=== PATIENT | female | born 1950 | race Hispanic/Latino ===

== ENCOUNTER → 2024-12-03 | Outpatient (REF) | payer MEDICARE | LOC: RAD 15:56 | PROVIDERS: ATTEND Family Medicine | DX: M19.012 Primary osteoarthritis, left shoulder (principal); M16.12 Unilateral primary osteoarthritis, left hip; M17.12 Unilateral primary osteoarthritis, left knee ==

== ENCOUNTER → 2024-12-24 | Outpatient (REF) | payer MEDICARE | LOC: RAD 15:22 | PROVIDERS: ATTEND Family Medicine | DX: Z01.810 Encounter for preprocedural cardiovascular examination (principal) | CPT/HCPCS: 71046; 93005 ==

== ENCOUNTER → 2025-01-08 | Day surgery (SDC) | payer MEDICARE ==
[2025-01-07 11:03] LABS: BASOPHILS # (AUTO) 0.1 (0.0-0.1); EOSINOPHILS % 0.2 % (0.0-6.0); HEMATOCRIT 32.1 % (34.2-44.1); HEMOGLOBIN 10.4 g/dL (12.0-16.0); LYMPHOCYTES # (AUTO) 2.1 (1.0-3.2); LYMPHOCYTES % 33.9 % (18.0-39.1); MEAN CORPUSCULAR HEMOGLOBIN 26.8 pg (28-32); MEAN CORPUSCULAR HGB CONC 32.4 g/dL (31-35); MEAN CORPUSCULAR VOLUME 82.7 fL (81-99); MONOCYTES # (AUTO) 1.1 (0.2-0.8); MONOCYTES % 18.1 % (4.4-11.3); NEUTROPHILS # (AUTO) 2.8 (2.1-6.9); NEUTROPHILS % 45.8 % (38.7-80.0); PLATELET COUNT 323 x10e3/uL (140-360); RED BLOOD COUNT 3.88 x10e6/uL (3.6-5.1); RED CELL DISTRIBUTION WIDTH 13.6 % (11.7-14.4); WHITE BLOOD COUNT 6.19 x10e3/uL (4.8-10.8)
[2025-01-07 11:29] LABS: ANION GAP 16.6 mmol/L (8-16); CALCIUM 10.1 mg/dL (8.4-10.2); CREATININE, SERUM 0.68 mg/dL (0.57-1.11); POTASSIUM 4.6 mmol/L (3.5-5.1)
[~2025-01-08] MED LIST: ACETAMINOPHEN 1000 MG/100 ML 100 ML IV ONE; ACETAMINOPHEN 1000 MG/100 ML IV PRN; ASPIRIN 325 MG TAB PO SCH; CELECOXIB 100 MG CAP PO SCH; CELECOXIB 200 MG CAP ONE; DEXAMETHASONE SOD PHOS 10 MG/1 ML VIAL ONE; DEXMEDETOMIDINE HCL 200 MCG/2 ML VIAL ONE; DIPHENHYDRAMINE HCL INJ 50 MG/ML VIAL IV PRN; DOCUSATE SODIUM 100 MG CAP PO PRN; FAMOTIDINE 20 MG/2 ML VIAL IV ONE; FENTANYL CITRATE/PF 100MCG/2 ML INJ ONE; GABAPENTIN 300 MG CAP ONE; GABAPENTIN100 MG PO; HYDROCODONE/APAP 5MG-325MG TAB PO PRN; LIDOCAINE HCL 2% LOCAL INJ 5 ML SDV VIAL INJ ONE; LIPITOR10 MG PO; MELOXICAM7.5 MG PO; METFORMIN HCL1000 MG PO; METOCLOPRAMIDE HCL 10 MG/2ML VIAL ONE; METOPROLOL SUCC25 MG PO; MIDAZOLAM HCL 2 MG/2 ML VIAL ONE; ONDANSETRON HCL INJ 2MG/ML 2ML 2 MG/ML VIAL IV PRN; ONDANSETRON HCL INJ 2MG/ML 2ML 2 MG/ML VIAL ONE; PROPOFOL IV EMULSION 10 MG/ML 20 ML VIAL ONE; REGLAN10 MG PO; ROPIVACAINE/EPI/CLONIDINE/KET 50 ML SYRINGE INJ ONE; SEVOFLURANE INHAL SOLN 250 ML PEN BTL ONE; SODIUM CHLORIDE 0.9% 1000ML 1,000 ML IV SCH; ZESTRIL2.5 MG PO
[2025-01-08] MEDS: GABAPENTIN 300 MG CAP PO ONE (08:47)
[2025-01-08] MEDS: CELECOXIB 200 MG CAP PO ONE ×2 (08:47)
[2025-01-08] MEDS: DEXAMETHASONE SOD PHOS 10 MG/1 ML VIAL IV ONE (08:50)
[2025-01-08 11:50] VITALS: TEMP 97.8
[2025-01-08] MEDS: FENTANYL CITRATE/PF 100MCG/2 ML INJ ONE (12:10)
[2025-01-08] MEDS: HYDROCODONE/APAP 7.5MG-325MG 1 EA TAB PO PRN (13:22)
[2025-01-08 15:00] VITALS: BP 137/65; PULSE 85; RESP 16; O2SAT 95
== END | disposition home or self-care (01) ==
LOC: OR 06:52
PROVIDERS: ATTEND Specialist
DX: M17.12 Unilateral primary osteoarthritis, left knee (principal); M25.762 Osteophyte, left knee; I10 Essential (primary) hypertension; E78.5 Hyperlipidemia, unspecified; E11.9 Type 2 diabetes mellitus without complications; Z71.3 Dietary counseling and surveillance; Z71.82 Exercise counseling; R53.81 Other malaise; Z01.812 Encounter for preprocedural laboratory examination; Z79.84 Long term (current) use of oral hypoglycemic drugs; Z79.1 Long term (current) use of non-steroidal anti-inflammatories (NSAID); Z79.899 Other long term (current) drug therapy; Z85.3 Personal history of malignant neoplasm of breast
CPT/HCPCS: 27447; 36415 ×2; 73560; 80048; 82948; 85025; 86850; 86900; 97110; 97116; 97161; C1713 ×2; C1776 ×3; J0131; J0690; J1100; J2003; J2250; J2405; J2704; J2765; J3010

== ENCOUNTER → 2025-05-08 | Outpatient (REF) | payer MEDICARE ==
[~2025-05-08] MED LIST changes: -ACETAMINOPHEN 1000 MG/100 ML 100 ML IV ONE; -ACETAMINOPHEN 1000 MG/100 ML IV PRN; -ASPIRIN 325 MG TAB PO SCH; -CELECOXIB 100 MG CAP PO SCH; -CELECOXIB 200 MG CAP ONE; -DEXAMETHASONE SOD PHOS 10 MG/1 ML VIAL ONE; -DEXMEDETOMIDINE HCL 200 MCG/2 ML VIAL ONE; -DIPHENHYDRAMINE HCL INJ 50 MG/ML VIAL IV PRN; -DOCUSATE SODIUM 100 MG CAP PO PRN; -FAMOTIDINE 20 MG/2 ML VIAL IV ONE; -FENTANYL CITRATE/PF 100MCG/2 ML INJ ONE; -GABAPENTIN 300 MG CAP ONE; -HYDROCODONE/APAP 5MG-325MG TAB PO PRN; -LIDOCAINE HCL 2% LOCAL INJ 5 ML SDV VIAL INJ ONE; -METOCLOPRAMIDE HCL 10 MG/2ML VIAL ONE; -MIDAZOLAM HCL 2 MG/2 ML VIAL ONE; -ONDANSETRON HCL INJ 2MG/ML 2ML 2 MG/ML VIAL IV PRN; -ONDANSETRON HCL INJ 2MG/ML 2ML 2 MG/ML VIAL ONE; -PROPOFOL IV EMULSION 10 MG/ML 20 ML VIAL ONE; -ROPIVACAINE/EPI/CLONIDINE/KET 50 ML SYRINGE INJ ONE; -SEVOFLURANE INHAL SOLN 250 ML PEN BTL ONE; -SODIUM CHLORIDE 0.9% 1000ML 1,000 ML IV SCH
== END ==
LOC: RAD 12:10
PROVIDERS: ATTEND Family Medicine
DX: M54.2 Cervicalgia (principal)
CPT/HCPCS: 72050